=== PATIENT | male | born 1960 | race Caucasian/White ===

== ENCOUNTER 2018-05-28 23:16 | Inpatient (IN) | payer BC ==
--- NOTE | 2018-05-28 23:47 | RAD ---
TWO VIEWS CHEST: Comparison: None. History: Chest pain FINDINGS: Two views of the chest shows a normal sized cardiomediastinal silhouette. The patient is status post sternotomy. There is no evidence of consolidation, mass, or pleural effusion. IMPRESSION: No evidence of acute cardiopulmonary disease. POS: [facility]
[2018-05-29 00:05] LABS: #Basophils 0.1 thou/uL (0.0-0.2); #Eosinphils 0.2 thou/uL (0.0-0.7); #Lymphocytes 3.1 thou/uL (1.20-3.40); #Monocytes 0.8 thou/uL (0.11-0.59); #Neutrophils 4.8 thou/uL (1.40-6.50); %Eosinophils 2.1 % (0.0-10.0); %Lymphocytes 34.3 % (21.0-51.0); %Monocytes 8.6 % (0.0-10.0); %Neutrophils 54.1 % (42.0-75.0); Hemoglobin 15.4 g/dL (14.0-18.0); Mean Corpuscular HGB CONC 34.6 g/dL (32.0-36.0); Mean Corpuscular Hemoglobin 33.6 pg (27.0-31.0); Mean Corpuscular Volume 97.2 fL (78.0-98.0); Platelet Count 291 thou/uL (130-400); RBC Distribution Width 11.5 % (11.5-14.5); Red Blood Cell (RBC) Count 4.57 mill/uL (4.70-6.10); White Blood Cell (WBC) Count 8.9 thou/uL (4.8-10.8)
[2018-05-29 00:50] LABS: ALT (SGPT) 12 U/L (8-55); AST (SGOT) 11 U/L (5-34); Albumin 3.8 g/dL (3.5-5.0); Alkaline Phosphatase 113 U/L (40-150); Anion Gap 13 mmol/L (10-20); BUN (Urea Nitrogen) 22 mg/dL (8.4-25.7); Bilirubin, Total 0.3 mg/dL (0.2-1.2); CK (CPK) 77 U/L (30-200); Calc. Creatinine Clearance 0 mL/min (70-130); Calcium 9.8 mg/dL (7.8-10.44); Carbon Dioxide 21 mmol/L (22-29); Chloride 106 mmol/L (98-107); Estimated GFR-MDRD 38; Glucose 256 mg/dL (70-105); Potassium 3.7 mmol/L (3.5-5.1); Protein, Total 6.9 g/dL (6.0-8.3); Sodium 136 mmol/L (136-145)
[2018-05-29 00:51] LABS: CKMB 2.2 ng/mL (0-6.6); Troponin I 0.025 ng/mL (< 0.028)
--- NOTE | 2018-05-29 01:50 | PDOC.FPRHP ---
- History of Present Illness Chief Complaint: Chest tightness History of Present Illness: Mr. Stafford presents with CC of "chest tightness" that began after waking up from nap yesterday afternoon. Denies chest pain, reports only chest tightness that goes across front of chest. No radiation, intermittent, unaffected by rest or activity, no trigger. Reports this tightness was similar to IA he had in 2003. Initially, the intermittent episodes lasted 10-15 min, now they are shorter. Denies SOB, N/ V, heart palpitations. 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 ED Course: ASA - Allergies/Adverse Reactions Allergies Allergy/AdvReac Type Severity Reaction Status Date / Time Penicillins Allergy Verified 03/05/14 06:50 - Home Medications Medication Instructions Recorded Confirmed Type Losartan [Cozaar] 100 mg PO DAILY 03/05/14 05/29/18 History Metoprolol Tartrate [Lopressor] 100 mg PO DAILY 03/05/14 05/29/18 History Pregabalin [Lyrica] 100 mg PO BID 03/05/14 05/29/18 History Simvastatin 40 mg PO HS 03/05/14 05/29/18 History Zonisamide [Zonegran] 200 mg PO HS 03/05/14 05/29/18 History lamoTRIgine [LaMICtal] 100 mg PO TID 03/05/14 05/29/18 History Clopidogrel Bisulfate [Plavix] 75 mg PO DAILY #30 tab 03/07/14 05/29/18 Rx Amlodipine [Norvasc] 5 mg PO DAILY 05/29/18 05/29/18 History HumaLOG 6 unit SC AC 05/29/18 05/29/18 History Insulin Glargine [Lantus] 22 units SC HS 05/29/18 05/29/18 History Omeprazole Magnesium [Prilosec] 20 mg PO DAILY 05/29/18 05/29/18 History - History PMHx: 2004 IA, T2DM, HTN, 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 No alcohol or drug use. - Review of Systems General: denies: fever/chills, weight/appetite/sleep changes Eyes: reports: vision changes (recent R eye surgery for diabetic retinopathy). denies: eye pain ENT: denies: nasal congestion, rhinorrhea Respiratory: denies: cough, shortness of breath Cardiovascular: reports: other (chest tightness). denies: chest pain, palpitation, edema Gastrointestinal: denies: nausea, vomiting, diarrhea, constipation, abdominal pain Genitourinary: denies: incontinence, dysuria Skin: denies: rashes, lesions Musculoskeletal: denies: pain, tenderness Neurological: denies: numbness, weakness Psychological: denies: anxiety, depression - Vital signs BP: 179/93 HR: 60 RR: 16 Tmax: 98.1 Pox: 98% on RA Wt: 72 kg - Physical Exam Constitutional: NAD, awake, alert and oriented, well developed HEENT: normocephalic and atraumatic, grossly normal hearing, MMM, oropharynx clear, other (R pupil smaller than L (recent surg)) Chest: no-tender to palpation Heart: RRR, normal S1/S2, no murmurs/rubs/gallops Lungs: CTAB, no respiratory distress, no wheezing, other (mild course breath sounds at bases) Abdomen: soft, non-tender, bowel sounds present Musculoskeletal: normal structure, normal tone Neurological: no focal deficit Skin: good turgor, capillary refill <2 seconds Heme/Lymphatic: no unusual bruising or bleeding Psychiatric: normal mood and affect FMR H&P: Results - Labs Result Diagrams: 05/28/18 23:57 05/29/18 00:10 Lab results: WBC 8.9 thou/uL (4.8-10.8) 05/28/18 23:57 Hgb 15.4 g/dL (14.0-18.0) 05/28/18 23:57 Hct 44.4 % (42.0-52.0) 05/28/18 23:57 MCV 97.2 fL (78.0-98.0) 05/28/18 23:57 Plt Count 291 thou/uL (130-400) 05/28/18 23:57 Neutrophils % 54.1 % (42.0-75.0) 05/28/18 23:57 Sodium 136 mmol/L (136-145) 05/29/18 00:10 Potassium 3.7 mmol/L (3.5-5.1) 05/29/18 00:10 Chloride 106 mmol/L (98-107) 05/29/18 00:10 Carbon Dioxide 21 mmol/L (22-29) L 05/29/18 00:10 BUN 22 mg/dL (8.4-25.7) 05/29/18 00:10 Creatinine 1.87 mg/dL (0.6-1.3) H 05/29/18 00:10 Glucose 256 mg/dL (70-105) H 05/29/18 00:10 Calcium 9.8 mg/dL (7.8-10.44) 05/29/18 00:10 Total Bilirubin 0.3 mg/dL (0.2-1.2) 05/29/18 00:10 AST 11 U/L (5-34) 05/29/18 00:10 ALT 12 U/L (8-55) 05/29/18 00:10 Alkaline Phosphatase 113 U/L (40-150) 05/29/18 00:10 Creatine Kinase 77 U/L (30-200) 05/29/18 00:10 CK-MB (CK-2) 2.2 ng/mL (0-6.6) 05/29/18 00:10 Serum Total Protein 6.9 g/dL (6.0-8.3) 05/29/18 00:10 Albumin 3.8 g/dL (3.5-5.0) 05/29/18 00:10 FMR H&P: A/P - Problem List (1) Atypical chest pain Current Visit: Yes Status: Acute Code(s): R07.89 - OTHER CHEST PAIN (2) T2DM (type 2 diabetes mellitus) Current Visit: Yes Status: Chronic (3) CKD (chronic kidney disease) Current Visit: Yes Status: Chronic Code(s): N18.9 - CHRONIC KIDNEY DISEASE, UNSPECIFIED Qualifiers: Chronic kidney disease stage: stage 3 (moderate) Qualified Code(s): N18.3 - Chronic kidney disease, stage 3 (moderate) (4) Epilepsy Current Visit: Yes Status: Chronic Code(s): G40.909 - EPILEPSY, UNSP, NOT INTRACTABLE, WITHOUT STATUS EPILEPTICUS (5) HTN (hypertension) Current Visit: Yes Status: Chronic Code(s): I10 - ESSENTIAL (PRIMARY) HYPERTENSION (6) HLD (hyperlipidemia) Current Visit: Yes Status: Chronic Code(s): E78.5 - HYPERLIPIDEMIA, UNSPECIFIED (7) Hx of CABG Current Visit: Yes Status: Chronic (8) Tobacco abuse Current Visit: Yes Status: Chronic Code(s): Z72.0 - TOBACCO USE - Plan 57 yo M with PMH CAD, T2DM, HTN presents with chest tightness and is admitted for observation of atypical chest pain. Atypical chest pain - hx of CAD with CABG, stent placement. Last cath in 2013 with stent placement. - Heart score 5 - received ASA in ED - trop 0.025, will continue to trend - EKG unchanged from previous - will consult cardiology in am for their recommendations on workup T2DM - with microvascular damage, retinopathy s/p surgery - continue home metformin, januvia when med rec complete - A1c 7.8, 12/2017 CAD s/p CABG and stent - continue home ASA, plavix, imdur, simvastatin when med rec complete HTN - continue home losartan, amlodipine? when med rec complete - hold home metoprolol CKD3 - Cr 1.87 and GFR 38 on admission, 1.6 is baseline - will monitor on BMP Peripheral neuropathy - continue home lyrica when med rec complete Hx of epilepsy 2/2 TBI - continue home lamictal, zonegran when med rec complete Tobacco abuse - encourage cessation - nicotine patch Diet: NPO after midnight Ppx: Lovenox, no GI Dispo: admit to telemetry for observation FMR H&P: Upper Level - Pertinent history 57 y/o M w/ PMHx of CABG and stent placement w/ last cath [place] [address] Sanders presents for evaluation of substernal chest tightness located at the inferior costal margin w/o radiation, no associated shortness of breath. No exacerbation w/ exertion. No sweating, no nausea. Pt reports pain similar to IA but significantly less severe. Reports taking heart medications as prescribed. Notes pain started upon waking from a nap earlier today around 1600. Reports pain has resolved. Given ASA in ER. - Pertinent findings Trop - .025 CK-MB - 2.2 CXR - NAD EKG - incomplete RBB, sinus madeleine, anterior and inferior lead q-waves (stable from 02/19 EKG) GEN: NAD, resting in bed comfortably HEENT: Normocephalic, atraumatic CARDS: RRR, no murmurs, rubs, gallops. CP non-reproducible PULM: CTA-b/l, no wheezes, rales, or rhonci GI: Non-ttp, BSx4 - Plan Date/Time: 05/29/18 0150 Arvin Erickson MD, have evaluated this patient and agree with findings/plan as outlined by application development intern resident. Pertinent changes/additions are listed here. 57 y/o M w/: 1) Atypical Chest Pain (HEART Score = 5) - Pt w/ signficant cardiac hx now w/ chest pain an no recent cardiac work-up. Initial enzymes reassuring and no evidence of acute ST-segment changes on EKG. - Admit Tele/Obs - Will cont. w/ statin, ASA, and other cardiac medications. Hold beta yoon for possible stress in the AM. - Check TSH - Plan to consult cardiology in the AM to discuss cath vs stress - Cont to trend Trops and CK-MB's q3 hrs 2) Other Chronic Medical Problems per application development intern note Attending Addendum - Attending Addendum Date/Time: 05/29/18 1306 I personally evaluated the patient and discussed the management with Dr. Freeman. I agree with the History, Examination, Assessment and Plan documented above with any addition or exceptions noted below. The pt presented with chest pain. Cardiac enzymes are slowly elevating. With pt's CAD history, we will consult cardiology to determine whether they want to cath the pt vs. getting a stress test. Pt is currently cp free.
[2018-05-29] MEDS ORDERED: Ondansetron ODT 4 MG TAB PO PRN (03:50)
[2018-05-29] MEDS ORDERED: Nitroglycerin 0.4 MG TAB (25 Tab Bottle) PO PRN (03:50)
[2018-05-29] MEDS ORDERED: Acetaminophen 325 MG TAB PO PRN (03:50)
[2018-05-29 04:14] LABS: Troponin I 0.067 ng/mL (< 0.028)
[2018-05-29 06:33] LABS: CKMB 2.8 ng/mL (0-6.6); Troponin I 0.147 ng/mL (< 0.028)
[2018-05-29 09:33] LABS: Troponin I 0.185 ng/mL (< 0.028)
[2018-05-29 12:42] LABS: Troponin I 0.202 ng/mL (< 0.028)
[2018-05-29] MEDS: Nicotine 21 MG PATCH TD SCH (14:45)
[2018-05-29] MEDS: Heparin 5,000 UNITS/ML VIAL SC SCH ×2 (14:46→22:16)
[2018-05-29 18:42] LABS: Troponin I 0.134 ng/mL (< 0.028)
--- NOTE | 2018-05-29 19:43 | CON ---
DATE OF CONSULTATION: REASON FOR CONSULTATION: Elevated troponin and chest pain. HISTORY OF PRESENT ILLNESS: Mr. Stafford is a pleasant 57-year-old gentleman, whom I have seen him in the past. He has a history of CAD, status post bypass surgery in 2013. At that time, he presented with unstable angina. He underwent successful stent placement through the saphenous vein graft to the right coronary artery. The distribution appeared small. The thrombus was present. He has done well since that time. He has been getting treatment for macular degeneration. He states he has had significant stress from his treatment to macular degeneration. He was scheduled for surgery tomorrow. He states he had acute onset of chest pain. It was dull in nature. This was wehl-py-bebreykg, a period lasting 5 hours. It waxed and waned. No other present. PAST MEDICAL HISTORY: CAD, status post bypass surgery; previous IN; epilepsy; hypertension; hyperlipidemia; chronic kidney disease; stent placement. SOCIAL HISTORY: Continues to smoke after previous discussions about tobacco cessation. No alcohol use. REVIEW OF SYSTEMS: A 10-point review of systems reviewed and is negative. PHYSICAL EXAMINATION: GENERAL: Patient is a pleasant male who is in no acute distress. The patient appears his stated age. VITAL SIGNS: Blood pressure 166/86, pulse 56, temperature 98.3. NEUROLOGIC: The patient is alert and oriented x3 with no focal neurologic deficits. HEENT: Sclerae without icterus. Mouth has moist mucous membranes with normal pallor. NECK: No JVD. Carotid upstroke brisk. No bruits bilaterally. LUNGS: Clear to auscultation with unlabored respirations. BACK: No scoliosis or kyphosis. CARDIAC: Regular rate and rhythm with normal S1 and S2. No S3 or S4 noted. No significant rubs, murmurs, thrills, or gallops noted throughout the precordium. PMI is not displaced. There is no parasternal heave. ABDOMEN: Soft, nontender, nondistended. No peritoneal signs present. No hepatosplenomegaly. No abnormal striae. EXTREMITIES: 2+ femoral and 2+ dorsalis pedis pulses. No cyanosis, clubbing, or edema. SKIN: No gross abnormalities. LABORATORY DATA: Pertinent labs: Troponin 0.2. TSH 2.4. Creatinine 1.87. GFR 38. IMPRESSION: 1. Elevated troponin. 2. Chest pain. 3. Coronary artery disease. 4. Status post bypass surgery. 5. Tobacco abuse. RECOMMENDATIONS: From a CV standpoint, I did review Mr. Stafford's angiogram. He has diffuse disease present. It is difficult to assess where his ischemia is coming from based on his angio in 2013. He is currently chest pain-free. His troponin maybe due to demand ischemia on top of chronic kidney disease. I did discuss coronary angiography versus stress test. The stress test would help assess the area of concern. This will also help assess whether the area of concern is a small area or large area. We would recommend a noninvasive stress test to assess for any areas of ischemia. Otherwise, I have no recommendations. Job ID: [id number]
[2018-05-29] MEDS ORDERED: Amlodipine 5 MG TAB PO SCH (21:15)
[2018-05-29] MEDS: INSULIN GLARGINE SC SCH (22:16)
[2018-05-29] MEDS: lamoTRIgine 100 MG TAB PO SCH (22:16)
[2018-05-29] MEDS: PRE FILLED SC SCH (22:16)
[2018-05-29] MEDS: Losartan 25 MG TAB PO SCH (22:17)
[2018-05-29] MEDS: Pregabalin 50 MG CAP PO SCH (22:17)
[2018-05-29] MEDS: Simvastatin 40 MG TAB PO SCH (22:18)
[2018-05-29] MEDS: Zonisamide 100 MG CAP PO SCH (22:27)
[2018-05-30 07:30] LABS: Anion Gap 12 mmol/L (10-20); BUN (Urea Nitrogen) 20 mg/dL (8.4-25.7); Calc. Creatinine Clearance 59 mL/min (70-130); Calcium 9.7 mg/dL (7.8-10.44); Carbon Dioxide 23 mmol/L (22-29); Chloride 109 mmol/L (98-107); Estimated GFR-MDRD 52; Glucose 133 mg/dL (70-105); Sodium 140 mmol/L (136-145)
[2018-05-30] MEDS ORDERED: Losartan 25 MG TAB PO SCH (09:00)
[2018-05-30] MEDS ORDERED: Non-Formulary Item 1 EACH (Omeprazole Magnesium [Prilosec] 20 MG) PO SCH (09:00)
[2018-05-30] MEDS: Clopidogrel Bisulfate 75 MG TAB PO SCH ×2 (09:12→12:30)
[2018-05-30] MEDS: lamoTRIgine 100 MG TAB PO SCH ×3 (09:12→20:15)
[2018-05-30] MEDS: Amlodipine 5 MG TAB PO SCH ×2 (09:12→12:31)
[2018-05-30] MEDS: Heparin 5,000 UNITS/ML VIAL SC SCH ×2 (09:12→20:15)
[2018-05-30] MEDS: HumaLOG 300 UNITS/3 ML VIAL SC SCH ×3 (09:12→14:43)
[2018-05-30] MEDS: Nicotine 21 MG PATCH TD SCH (09:12)
[2018-05-30] MEDS: Sodium Chloride 0.9% 1,000 ML IV SCH ×3 (09:13→20:14)
[2018-05-30] MEDS: Pregabalin 50 MG CAP PO SCH ×3 (09:13→20:17)
--- NOTE | 2018-05-30 11:09 | PDOC.FM ---
- Subjective Subjective: Pt had stress this am. Remains chest pain free; however, per pt had some st changes on stress and still worker helper gave pt nitro and recommended no diet today. Will wait for official report on stress. - Objective Vital Signs & Weight: Vital Signs (12 hours) Temp Pulse Resp BP BP Pulse Ox 05/30/18 09:12 84 05/30/18 07:34 98.3 F 84 20 128/70 95 05/30/18 04:48 98.6 F 67 16 126/68 95 05/29/18 23:49 97.8 F 72 20 113/57 L 96 Weight Weight 71.985 kg I&O: 05/29/18 05/30/18 05/31/18 06:59 06:59 06:59 Intake Total 840 Balance 840 Result Diagrams: 05/28/18 23:57 05/30/18 06:30 <John Marin - Last Filed: 05/30/18 11:07> - Objective Vital Signs & Weight: Vital Signs (12 hours) Temp Pulse Resp BP Pulse Ox 05/30/18 12:31 76 05/30/18 11:45 98.2 F 76 16 111/57 L 93 L 05/30/18 07:34 98.3 F 84 20 128/70 95 05/30/18 04:48 98.6 F 67 16 126/68 95 Weight Weight 71.985 kg I&O: 05/29/18 05/30/18 05/31/18 06:59 06:59 06:59 Intake Total 840 250 Balance 840 250 Result Diagrams: 05/28/18 23:57 05/30/18 12:24 <Caty Anaya - Last Filed: 05/30/18 15:28> Phys Exam - Physical Examination Constitutional: NAD HEENT: PERRLA, moist MMs Neck: no nodes, no JVD Respiratory: no wheezing, no rales, no rhonchi, clear to auscultation bilateral Cardiovascular: RRR, no significant murmur, no rub Gastrointestinal: no distention Musculoskeletal: no edema, pulses present Neurological: non-focal, moves all 4 limbs Psychiatric: normal affect Skin: no rash, normal turgor <John Marin - Last Filed: 05/30/18 11:07> Dx/Plan (1) Atypical chest pain Code(s): R07.89 - OTHER CHEST PAIN Status: Acute (2) CKD (chronic kidney disease) Code(s): N18.9 - CHRONIC KIDNEY DISEASE, UNSPECIFIED Status: Chronic Qualifiers: Chronic kidney disease stage: stage 3 (moderate) Qualified Code(s): N18.3 - Chronic kidney disease, stage 3 (moderate) (3) HLD (hyperlipidemia) Code(s): E78.5 - HYPERLIPIDEMIA, UNSPECIFIED Status: Chronic (4) HTN (hypertension) Code(s): I10 - ESSENTIAL (PRIMARY) HYPERTENSION Status: Chronic (5) Hx of CABG Status: Chronic (6) T2DM (type 2 diabetes mellitus) Status: Chronic (7) Tobacco abuse Code(s): Z72.0 - TOBACCO USE Status: Chronic - Plan Plan: Atypical chest pain - stress results pending per cardiology recommendations - NPO until results return T2DM - cont home meds CAD s/p CABG and stent - continue home ASA, plavix, imdur, simvastatin when med rec complete HTN - cont home meds CKD3 - stable - monitor Peripheral neuropathy - home meds Hx of epilepsy 2/2 TBI - home meds Tobacco abuse - encourage cessation - nicotine patch Dispo: stable, awaiting stress results and further management dependent on that. <John Marin - Last Filed: 05/30/18 11:07> (1) Atypical chest pain Code(s): R07.89 - OTHER CHEST PAIN Status: Acute (2) T2DM (type 2 diabetes mellitus) Status: Chronic (3) CKD (chronic kidney disease) Code(s): N18.9 - CHRONIC KIDNEY DISEASE, UNSPECIFIED Status: Chronic Qualifiers: Chronic kidney disease stage: stage 3 (moderate) Qualified Code(s): N18.3 - Chronic kidney disease, stage 3 (moderate) (4) Epilepsy Code(s): G40.909 - EPILEPSY, UNSP, NOT INTRACTABLE, WITHOUT STATUS EPILEPTICUS Status: Chronic (5) HTN (hypertension) Code(s): I10 - ESSENTIAL (PRIMARY) HYPERTENSION Status: Chronic (6) HLD (hyperlipidemia) Code(s): E78.5 - HYPERLIPIDEMIA, UNSPECIFIED Status: Chronic (7) Hx of CABG Status: Chronic (8) Tobacco abuse Code(s): Z72.0 - TOBACCO USE Status: Chronic <Caty Anaya - Last Filed: 05/30/18 15:28> Attending Addendum - Attending Addendum Date/Time: 05/30/18 1528 I personally evaluated the patient and discussed the management with Dr. Marin. I agree with the History, Examination, Assessment and Plan documented above with any addition or exceptions noted below. Pt was seen after stress test this morning. He states his ekg was abnormal during the stress and he was given a nitro tab. Waiting on official read and recs by Dr. Sanders. <Caty Anaya - Last Filed: 05/30/18 15:28>
--- NOTE | 2018-05-30 11:49 | NM ---
MYOCARDIAL PERFUSION AND QUANTITATIVE GATED SPECT STUDY: Date: 05-30-18 History: Chest pain FINDINGS: Dose is 31 mCi Technetium 99M Cardiolite for the stress portion of the exam and 10.8 mCi for the rest ing portion of the exam. The patient was stressed using Car protocol. Images demonstrate areas of decreased profusion on stress images in the inferior myocardium. There is some inferior and lateral myocardial areas of decreased perfusion which demonstrates re-perfusion on the resting images. Findings suggest inferior and lateral myocardial ischemia. Ejection fraction: 71% IMPRESSION: Inferior and lateral myocardial ischemia. POS: [facility]
[2018-05-30 13:01] LABS: Anion Gap 11 mmol/L (10-20); BUN (Urea Nitrogen) 20 mg/dL (8.4-25.7); Calc. Creatinine Clearance 57 mL/min (70-130); Calcium 9.7 mg/dL (7.8-10.44); Carbon Dioxide 24 mmol/L (22-29); Chloride 107 mmol/L (98-107); Estimated GFR-MDRD 49; Glucose 196 mg/dL (70-105); Sodium 138 mmol/L (136-145)
[2018-05-30] MEDS ORDERED: Communication Order-Pharmacy FS SCH (18:45)
[2018-05-30] MEDS ORDERED: Diazepam 5 MG TAB PO SCH (18:45)
[2018-05-30] MEDS: PRE FILLED SC SCH (20:15)
[2018-05-30] MEDS: Losartan 25 MG TAB PO SCH (20:15)
[2018-05-30] MEDS: INSULIN GLARGINE SC SCH (20:15)
[2018-05-30] MEDS: Simvastatin 40 MG TAB PO SCH (20:17)
[2018-05-30] MEDS: Zonisamide 100 MG CAP PO SCH (20:18)
[2018-05-31 04:09] LABS: #Basophils 0.1 thou/uL (0.0-0.2); #Eosinphils 0.1 thou/uL (0.0-0.7); #Lymphocytes 2.4 thou/uL (1.20-3.40); #Monocytes 0.8 thou/uL (0.11-0.59); #Neutrophils 5.6 thou/uL (1.40-6.50); %Basophils 0.7 % (0.0-1.0); %Eosinophils 1.3 % (0.0-10.0); %Lymphocytes 26.8 % (21.0-51.0); %Monocytes 9.1 % (0.0-10.0); Hemoglobin 14.4 g/dL (14.0-18.0); Mean Corpuscular HGB CONC 34.2 g/dL (32.0-36.0); Mean Corpuscular Hemoglobin 33.6 pg (27.0-31.0); Mean Corpuscular Volume 98.2 fL (78.0-98.0); Mean Platelet Volume 8.2 fL (7.4-10.4); Platelet Count 254 thou/uL (130-400); RBC Distribution Width 11.4 % (11.5-14.5); Red Blood Cell (RBC) Count 4.27 mill/uL (4.70-6.10)
[2018-05-31 04:30] LABS: ALT (SGPT) 12 U/L (8-55); AST (SGOT) 12 U/L (5-34); Albumin 3.6 g/dL (3.5-5.0); Alkaline Phosphatase 115 U/L (40-150); Anion Gap 12 mmol/L (10-20); BUN (Urea Nitrogen) 18 mg/dL (8.4-25.7); Bilirubin, Total 0.3 mg/dL (0.2-1.2); Calc. Creatinine Clearance 54 mL/min (70-130); Carbon Dioxide 20 mmol/L (22-29); Chloride 114 mmol/L (98-107); Estimated GFR-MDRD 47; Globulin 2.9 g/dL (2.4-3.5); Glucose 129 mg/dL (70-105); Potassium 3.9 mmol/L (3.5-5.1); Protein, Total 6.5 g/dL (6.0-8.3); Sodium 142 mmol/L (136-145)
[2018-05-31] MEDS: Sodium Chloride 0.9% 1,000 ML IV SCH ×5 (05:25→20:26)
[2018-05-31] MEDS ORDERED: Midazolam HCl 2 mg/2 ml Vial ONE (06:55)
[2018-05-31] MEDS ORDERED: Fentanyl 100 MCG/2 ML VIAL ONE (06:55)
[2018-05-31] MEDS ORDERED: Lidocaine 1% (PF) 30 ML VIAL ONE ×2 (06:55)
[2018-05-31] MEDS ORDERED: Nitroglycerin 100MG/250ML BOT 250 ML ONE ×2 (07:38→07:39)
--- NOTE | 2018-05-31 08:21 | PRG ---
DATE OF SERVICE: 05/30/2018 SUBJECTIVE: Mr. Stafford had a recent stress study that it was positive for ischemia along inferior and lateral wall. He does not have any recurrent episodes of chest pain. He did exercise for 10 minutes without chest pain. He did have Q-waves noted inferiorly with ST-segment elevation. This likely represented a previous NV. OBJECTIVE: GENERAL: The patient is a pleasant 57-year-old male, who is in no acute distress. The patient appears their stated age. VITAL SIGNS: Blood pressure 156/85, pulse 69, temperature 97.7. NEUROLOGIC: The patient is alert and oriented x3 with no focal neurologic deficits. HEENT: Sclerae without icterus. Mouth has moist mucous membranes with normal pallor. NECK: No JVD. Carotid upstroke brisk. No bruits bilaterally. LUNGS: Clear to auscultation with unlabored respirations. BACK: No scoliosis or kyphosis. CARDIAC: Regular rate and rhythm with normal S1 and S2. No S3 or S4 noted. No significant rubs, murmurs, thrills, or gallops noted throughout the precordium. PMI is not displaced. There is no parasternal heave. ABDOMEN: Soft, nontender, nondistended. No peritoneal signs present. No hepatosplenomegaly. No abnormal striae. EXTREMITIES: 2+ femoral and 2+ dorsalis pedis pulses. No cyanosis, clubbing, or edema. SKIN: No gross abnormalities. IMPRESSION: 1. Abnormal stress study. 2. Elevated troponin. 3. Chest pain. RECOMMENDATIONS: Certainly difficult situation to Mr. Stafford. He did have excellent exercise tolerance on recent treadmill at 10 minutes with no chest pain. He did have an ST-segment elevation. He also had ischemia in 2-vessel distribution. After reviewing his angio, he may have ischemia to the intermediate ramus branch in addition to the right coronary artery. He may also have complete occlusion of the graft to the right coronary artery that has been stented in the past. He has not had any stress study performed in the last 4 years after a stent placement. I discussed medical therapy versus coronary angiography, stressing coronary angiography. He is having laser therapy for diabetic retinopathy by Dr. Alcaraz in the coming weeks. I did discuss with Dr. Alcaraz as well. Dr. Alcaraz feels that I can proceed with drug-coated stent placement if needed. Therefore, we will proceed. I discussed coronary angiography in full details, risks included, but not limited to . I discussed the procedure in full detail with the patient. The risks of the procedure were also discussed. The risks of the procedure include but are not limited to the following: , stroke, NV, need for emergency surgery, loss of limb, bleeding, and infection, as well as a reaction to the dye causing kidney failure and needing long-term dialysis. I also discussed the risks of PCI to include all of the above including coronary dissection and perforation in addition to acute stent thrombosis and restenosis. All questions about the procedure were answered. Given the above, the patient agreed to proceed with coronary angiography and possible PCI. All questions were answered. I had also discussed drug-coated we will proceed if needed. His creatinine is 1.48. We will hydrate him starting today. We will hydrate for 12 to 18 hours. Job ID: [id number]
[2018-05-31] MEDS: HumaLOG 300 UNITS/3 ML VIAL SC SCH ×3 (09:22→17:36)
[2018-05-31] MEDS: lamoTRIgine 100 MG TAB PO SCH ×3 (09:25→20:17)
[2018-05-31] MEDS: Amlodipine 5 MG TAB PO SCH (09:25)
[2018-05-31] MEDS: Pregabalin 50 MG CAP PO SCH ×2 (09:26→20:19)
[2018-05-31] MEDS: Nicotine 21 MG PATCH TD SCH (09:29)
--- NOTE | 2018-05-31 09:30 | PDOC.FM ---
- Subjective Subjective: 57 yo M w/ sever [facility] day 3. Pt had cardiac cath this am and per pt and pts family showed significant occlusion of previous grafts and stents that are likley not ammenable to stenting. Per family cardiology will consult CV surgery for further recommendations. He denies cp, sob, NVDC, diaphoresis. - Objective Vital Signs & Weight: Vital Signs (12 hours) Temp Pulse Resp BP BP Pulse Ox 05/31/18 08:22 98.2 F 71 20 151/71 H 98 05/31/18 05:20 97.7 F 69 14 156/83 H 95 05/30/18 23:31 97.8 F 67 12 158/77 H 95 Weight Weight 73.119 kg I&O: 05/30/18 05/31/18 06/01/18 06:59 06:59 06:59 Intake Total 840 4100 Balance 840 4100 Result Diagrams: 05/31/18 03:46 05/31/18 03:46 <John Marin - Last Filed: 05/31/18 09:28> - Objective Vital Signs & Weight: Vital Signs (12 hours) Temp Pulse Resp BP BP BP Pulse Ox 05/31/18 09:25 71 162/87 H 05/31/18 08:22 98.2 F 71 20 151/71 H 98 05/31/18 05:20 97.7 F 69 14 156/83 H 95 05/30/18 23:31 97.8 F 67 12 158/77 H 95 Weight Weight 73.119 kg I&O: 05/30/18 05/31/18 06/01/18 06:59 06:59 06:59 Intake Total 840 4100 Output Total 300 Balance 840 4100 -300 Result Diagrams: 05/31/18 03:46 05/31/18 03:46 <Caty Anaya - Last Filed: 05/31/18 10:57> Phys Exam - Physical Examination Constitutional: NAD HEENT: PERRLA, moist MMs, sclera anicteric Neck: no nodes, no JVD Respiratory: no wheezing, no rales, no rhonchi, clear to auscultation bilateral Cardiovascular: RRR, no significant murmur, no rub Gastrointestinal: soft, non-tender, no distention, positive bowel sounds Musculoskeletal: no edema, pulses present Neurological: non-focal, moves all 4 limbs Psychiatric: normal affect Skin: no rash, cap refill <2 seconds <John Marin - Last Filed: 05/31/18 09:28> Dx/Plan (1) Atypical chest pain Code(s): R07.89 - OTHER CHEST PAIN Status: Acute (2) CKD (chronic kidney disease) Code(s): N18.9 - CHRONIC KIDNEY DISEASE, UNSPECIFIED Status: Chronic Qualifiers: Chronic kidney disease stage: stage 3 (moderate) Qualified Code(s): N18.3 - Chronic kidney disease, stage 3 (moderate) (3) HLD (hyperlipidemia) Code(s): E78.5 - HYPERLIPIDEMIA, UNSPECIFIED Status: Chronic (4) HTN (hypertension) Code(s): I10 - ESSENTIAL (PRIMARY) HYPERTENSION Status: Chronic (5) Hx of CABG Status: Chronic (6) T2DM (type 2 diabetes mellitus) Status: Chronic (7) Tobacco abuse Code(s): Z72.0 - TOBACCO USE Status: Chronic - Plan Plan: Atypical chest pain - await cardiology recs - likely CV surg consult and possible repeat CABG T2DM - cont home meds CAD s/p CABG and stent - continue home ASA, plavix, imdur, simvastatin when med rec complete HTN - cont home meds CKD3 - stable - monitor - IVF hydration 12-18 hrs post procedure per cards recs Peripheral neuropathy - home meds Hx of epilepsy 2/2 TBI - home meds Tobacco abuse - encourage cessation - nicotine patch Dispo: stable, awaiting cardiology recs and cardiac cath official results. <John Marin - Last Filed: 05/31/18 09:28> (1) Atypical chest pain Code(s): R07.89 - OTHER CHEST PAIN Status: Acute (2) T2DM (type 2 diabetes mellitus) Status: Chronic (3) CKD (chronic kidney disease) Code(s): N18.9 - CHRONIC KIDNEY DISEASE, UNSPECIFIED Status: Chronic Qualifiers: Chronic kidney disease stage: stage 3 (moderate) Qualified Code(s): N18.3 - Chronic kidney disease, stage 3 (moderate) (4) Epilepsy Code(s): G40.909 - EPILEPSY, UNSP, NOT INTRACTABLE, WITHOUT STATUS EPILEPTICUS Status: Chronic (5) HTN (hypertension) Code(s): I10 - ESSENTIAL (PRIMARY) HYPERTENSION Status: Chronic (6) HLD (hyperlipidemia) Code(s): E78.5 - HYPERLIPIDEMIA, UNSPECIFIED Status: Chronic (7) Hx of CABG Status: Chronic (8) Tobacco abuse Code(s): Z72.0 - TOBACCO USE Status: Chronic <Caty Anaya - Last Filed: 05/31/18 10:57> Attending Addendum - Attending Addendum Date/Time: 05/31/18 1056 I personally evaluated the patient and discussed the management with Dr. Marin. I agree with the History, Examination, Assessment and Plan documented above with any addition or exceptions noted below. The patient had a cath this morning showing multi-vessel disease. CV surgery is being consulted to see if he is a candidate for cabg. <Caty Anaya - Last Filed: 05/31/18 10:57>
[2018-05-31] MEDS ORDERED: traMADol HCl 50 MG TAB PO PRN (09:33)
[2018-05-31] MEDS ORDERED: Nitroglycerin 0.4 MG TAB (25 Tab Bottle) SL PRN (09:33)
[2018-05-31] MEDS ORDERED: Acetaminophen/Codeine 30-300mg Tablet PO PRN ×2 (09:33)
[2018-05-31] MEDS ORDERED: Sodium Chloride 0.9% 200 ML IV SCH (09:45)
[2018-05-31] MEDS ORDERED: Iopamidol 370 76% 100 ML VIAL ONE (10:54)
[2018-05-31] MEDS: Heparin 5,000 UNITS/ML VIAL SC SCH (13:55)
[2018-05-31] MEDS: Clopidogrel Bisulfate 75 MG TAB PO SCH (13:59)
[2018-05-31 14:37] VITALS: BMI 26.4
[2018-05-31 18:45] LABS: Hemoglobin 14.4 g/dL (14.0-18.0); Platelet Count 252 thou/uL (130-400)
[2018-05-31] MEDS: Heparin 10,000 UNITS/ 10 ML VIAL SLOW IVP SCH (20:05)
[2018-05-31] MEDS: Heparin 25,000 units/D5W 500 ML IVPB SCH (20:06)
[2018-05-31] MEDS: Aggrastat 12.5 MG/250 ML 250 ML IVPB SCH (20:10)
[2018-05-31] MEDS: Simvastatin 40 MG TAB PO SCH (20:17)
[2018-05-31] MEDS: Losartan 25 MG TAB PO SCH (20:18)
[2018-05-31] MEDS: Zonisamide 100 MG CAP PO SCH (20:30)
[2018-05-31] MEDS: INSULIN GLARGINE SC SCH (20:38)
[2018-05-31] MEDS: PRE FILLED SC SCH (20:38)
[2018-06-01 03:07] LABS: Anion Gap 9 mmol/L (10-20); BUN (Urea Nitrogen) 14 mg/dL (8.4-25.7); Calc. Creatinine Clearance 66 mL/min (70-130); Calcium 8.8 mg/dL (7.8-10.44); Carbon Dioxide 23 mmol/L (22-29); Chloride 115 mmol/L (98-107); Estimated GFR-MDRD 57; Glucose 79 mg/dL (70-105); Potassium 3.8 mmol/L (3.5-5.1); Sodium 143 mmol/L (136-145)
[2018-06-01 04:36] LABS: Hemoglobin 12.9 g/dL (14.0-18.0); Platelet Count 244 thou/uL (130-400)
[2018-06-01] MEDS: lamoTRIgine 100 MG TAB PO SCH ×3 (09:30→20:39)
[2018-06-01] MEDS: Clopidogrel Bisulfate 75 MG TAB PO SCH (09:31)
[2018-06-01] MEDS: Pregabalin 50 MG CAP PO SCH ×2 (09:31→20:38)
[2018-06-01] MEDS: Amlodipine 5 MG TAB PO SCH (09:32)
[2018-06-01] MEDS: Nicotine 21 MG PATCH TD SCH (09:35)
[2018-06-01] MEDS: HumaLOG 300 UNITS/3 ML VIAL SC SCH ×4 (09:35→22:17)
[2018-06-01 09:48] LABS: Hemoglobin 13.9 g/dL (14.0-18.0); Platelet Count 269 thou/uL (130-400)
[2018-06-01] MEDS ORDERED: Lorazepam 1 MG TAB PO PRN (10:03)
[2018-06-01] MEDS ORDERED: Lorazepam 2 MG/ML VIAL SLOW IVP SCH (10:15)
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
[2018-06-01] MEDS ORDERED: Nitroglycerin 4.9 GM Bottle ONE (11:11)
[2018-06-01] MEDS: Heparin 10,000 UNITS/ 10 ML VIAL SLOW IVP SCH (11:12)
--- NOTE | 2018-06-01 12:09 | PQF ---
CLINICAL DOCUMENTATION IMPROVEMENT CLARIFICATION FORM: ICD-10 Updated PLEASE DO AN ADDENDUM TO THE PROGRESS NOTE WITH ANY DOCUMENTATION UPDATES OR ADDITIONS AND CARRY THROUGH TO DC SUMMARY. THANK YOU. DATE: 06/01 ATTN: DR. JOSHUA JORGE / DR. Khoa PANG Please exercise your independent, professional judgment in responding to the clarification form. Clinical indicators are provided on the bottom of this form for your review Please check appropriate box(s): ELEVATED TROPONIN I D/T: [ x ] Demand Ischemia [ ] Not D/T Demand Ischemia [ ] Other diagnosis [ ] Unable to determine For continuity of documentation, please document condition throughout progress notes and discharge summary. Thank You. CLINICAL INDICATORS - SIGNS / SYMPTOMS/ LABS are present in the medical record: TROP I: 0.025, 0.067, 0.067, 0.147, 0.185, 0.202, 0.134 (05/29) H&P DOCUMENTATION 05/29: CARDIAC ENZYMES ARE SLOWING ELEVATING PN 05/30 - 5: 1) ATYPICAL CHEST PAIN PN 06/01: 1) ATYPICAL CHEST PAIN. SIGNIFICANT STENOSIS & OCCLUSION OF PREVIOUS GRAFTS & STENT CARDIOLOGY CONSULT 05/29: 1) ELEVATED TROPONIN. HIS TROPONIN MAY BE ELEVATED D /T DEMAND ISCHEMIA ON TOP OF CKD RISK FACTORS: CHEST PAIN CAD S/P CABG W/STENT DM II CKD 3 TOBACCO ABUSE TREATMENT: CARDIOLOGY CONSULT CARDIAC CATH (05/31) THANK YOU! Joana (This form is maintained as a part of the permanent medical record) 2014 [employer]. All Rights Reserved Joana Verde RN, BSN [email or web address] Office: [phone] [facility] HOSPITALNikki
--- NOTE | 2018-06-01 13:55 | PRG ---
DATE OF SERVICE: 06/01/2018 SUBJECTIVE: Mr. Stafford is doing well. He had nosebleed that has resolved. He was placed on heparin and IIb/IIIa inhibitor yesterday. OBJECTIVE: VITAL SIGNS: Blood pressure 113/62, pulse 67, and temperature 97.9. LUNGS: Clear to auscultation. HEART: Regular rate and rhythm. ABDOMEN: Soft, nontender, and nondistended. EXTREMITIES: No edema. IMPRESSION: 1. Unstable angina. 2. Severe coronary artery disease. 3. Status post bypass surgery. 4. Tobacco abuse. 5. Diabetes mellitus. 6. Chronic kidney disease. RECOMMENDATIONS: After having discussed transfer to [place] versus intervention at [place], the patient opted for transfer to [place]. Dr. Borrego is the pending accepting provider. The patient is felt to be high risk for complications. We will continue heparin and IIb/IIIa inhibitor. All questions were answered. Transfer Center has been notified. Job ID: [id number]
[2018-06-01 16:05] LABS: Platelet Count 270 thou/uL (130-400)
[2018-06-01 20:26] VITALS: BP 144/77; TEMP 98.8
[2018-06-01] MEDS: Simvastatin 40 MG TAB PO SCH (20:39)
[2018-06-01] MEDS: Losartan 25 MG TAB PO SCH (20:39)
[2018-06-01 21:11] LABS: Hemoglobin 14.4 g/dL (14.0-18.0); Platelet Count 266 thou/uL (130-400)
[2018-06-01] MEDS: INSULIN GLARGINE SC SCH (22:09)
[2018-06-01] MEDS: Zonisamide 100 MG CAP PO SCH (22:09)
[2018-06-01] MEDS: PRE FILLED SC SCH (22:09)
[2018-06-01] MEDS: Aggrastat 12.5 MG/250 ML 250 ML IVPB SCH (23:09)
[2018-06-01] MEDS: Heparin 25,000 units/D5W 500 ML IVPB SCH (23:12)
--- NOTE | 2018-06-03 13:02 | EKG ---
Test Reason : Blood Pressure : / mmHG Vent. Rate : 059 BPM Atrial Rate : 059 BPM P-R Int : 180 ms QRS Dur : 094 ms QT Int : 436 ms P-R-T Axes : 038 -21 032 degrees QTc Int : 431 ms Sinus bradycardia Incomplete right bundle branch block Inferior infarct , age undetermined Anterior infarct , age undetermined Abnormal ECG Confirmed by COLTON MCGRATH ([id number]), publishing editor NOÉ TORRES ([id number]) on 06/03/2018 1:02:14 PM Referred By: Confirmed By:COLTON MCGRATH
== END 2018-06-01 23:30 | disposition short-term general hospital (02) | DRG 287 ==
LOC: ERS 23:16 → ERHOLD 05-29 01:20 → 2SW 05-29 15:22 → OBSVTOIN 05-31 11:31 → 2NO 05-31 14:17
PROVIDERS: ADMIT Family Medicine; ATTEND Family Medicine
PROC: 4A023N7 Measurement of Cardiac Sampling and Pressure, Left Heart, Percutaneous Approach (ICD-10-PCS; principal; 2018-05-31)
PROC: B2111ZZ Fluoroscopy of Multiple Coronary Arteries using Low Osmolar Contrast (ICD-10-PCS; 2018-05-31)
PROC: B2131ZZ Fluoroscopy of Multiple Coronary Artery Bypass Grafts using Low Osmolar Contrast (ICD-10-PCS; 2018-05-31)
PROC: B2181ZZ Fluoroscopy of Left Internal Mammary Bypass Graft using Low Osmolar Contrast (ICD-10-PCS; 2018-05-31)
DX: I25.718 Atherosclerosis of autologous vein coronary artery bypass graft(s) with other forms of angina pectoris (principal); I24.8 Other forms of acute ischemic heart disease; N17.9 Acute kidney failure, unspecified; Z95.1 Presence of aortocoronary bypass graft; F17.210 Nicotine dependence, cigarettes, uncomplicated; E11.22 Type 2 diabetes mellitus with diabetic chronic kidney disease; I12.9 Hypertensive chronic kidney disease with stage 1 through stage 4 chronic kidney disease, or unspecified chronic kidney disease; I25.2 Old myocardial infarction; E11.319 Type 2 diabetes mellitus with unspecified diabetic retinopathy without macular edema; E78.5 Hyperlipidemia, unspecified; Z95.5 Presence of coronary angioplasty implant and graft; N18.3 Chronic kidney disease, stage 3 (moderate); F41.9 Anxiety disorder, unspecified; E11.42 Type 2 diabetes mellitus with diabetic polyneuropathy; G40.909 Epilepsy, unspecified, not intractable, without status epilepticus; Z88.0 Allergy status to penicillin; F32.9 Major depressive disorder, single episode, unspecified; I45.10 Unspecified right bundle-branch block
CPT/HCPCS: 36415; 36416; 71046; 76942; 78452; 80048; 80053; 82550; 82553; 84443; 84484; 85014; 85018; 85025; 85049; 85730; 93005; 93017; 93455; 94760; 99152; 99406; A9500; C1769; J1644; J2001; J2060; J2250; J3010; J3246

== ENCOUNTER 2020-07-08 14:21 | Outpatient (CLI) | payer BC ==
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
== END 2020-07-08 14:22 | disposition home or self-care (01) ==
LOC: BICRAD 14:21
PROVIDERS: ATTEND Family Medicine
DX: M79.605 Pain in left leg (principal)

== ENCOUNTER 2022-04-26 16:07 | Outpatient (CLI) | payer BC | END 2022-04-26 16:08 | disposition home or self-care (01) | LOC: BICRAD 16:07 | PROVIDERS: ATTEND Family Medicine | DX: R07.81 Pleurodynia (principal); J90 Pleural effusion, not elsewhere classified; J98.11 Atelectasis | CPT/HCPCS: 71046 ==

== ENCOUNTER 2025-05-15 20:49 | Inpatient (IN) | payer BC ==
[2025-05-15 21:22] LABS: #Basophils 0.05 10x3/uL (0.0-0.2); #Eosinophils 0.24 10x3/uL (0.0-0.7); #Monocytes 0.70 10x3/uL (0.11-0.59); #Neutrophils 5.38 10x3/uL (1.40-6.50); %Basophils 0.5 % (0.0-1.0); %Eosinophils 2.6 % (0.0-10.0); %Lymphocytes 30.8 % (21.0-51.0); %Monocytes 7.6 % (0.0-10.0); %Neutrophils 58.1 % (42.0-75.0); Hematocrit 43.7 % (42.0-52.0); Hemoglobin 14.7 g/dL (14.0-18.0); Mean Corpuscular Hemoglobin 32.3 pg (27.0-31.0); Mean Corpuscular Volume 96.0 fL (78.0-98.0); Platelet Count 256 10x3/uL (130-400); Red Blood Cell (RBC) Count 4.55 mill/uL (4.70-6.10); White Blood Cell (WBC) Count 9.26 10x3/uL (4.8-10.8)
[2025-05-15 21:47] LABS: ALT (SGPT) 16 U/L (Less than 45); AST (SGOT) 22 U/L (11-34); Albumin 3.9 g/dL (3.1-4.5); Alkaline Phosphatase 135 U/L (40-110); Anion Gap 15 mmol/L (10-20); BUN (Urea Nitrogen) 21 mg/dL (8.4-25.7); Bilirubin, Total 0.3 mg/dL (0.3-1.2); Calc. Creatinine Clearance 0 mL/min (70-130); Calcium 9.1 mg/dL (7.8-10.44); Carbon Dioxide 21 mmol/L (23-31); Chloride 109 mmol/L (98-107); Globulin 3.0 g/dL (2.4-3.5); Glucose 94 mg/dL (80-115); Lipase 38 U/L (8-78); Potassium 3.4 mmol/L (3.5-5.1); Sodium 142 mmol/L (136-145)
[2025-05-15] MEDS ORDERED: Droperidol 5 MG/2 ML VIAL ONE (22:35)
[2025-05-15] MEDS ORDERED: Dextrose 50% Abboject 50 ML SYRINGE ONE (22:35)
[2025-05-15] MEDS ORDERED: Calcium Carbonate 500 MG ChewTAB PO PRN (23:39)
[2025-05-15] MEDS ORDERED: Guaifenesin DM 100-10/5 ML UDCUP PO PRN (23:39)
[2025-05-15] MEDS ORDERED: Glucagon 1 MG/ML KIT IM PRN (23:39)
[2025-05-15] MEDS ORDERED: Senokot S 8.6-50 MG TAB PO PRN (23:39)
[2025-05-15] MEDS ORDERED: Dextrose 50% Abboject 50 ML SYRINGE SLOW IVP PRN (23:39)
[2025-05-15] MEDS ORDERED: Acetaminophen 325 MG TAB PO PRN (23:45)
[2025-05-15] MEDS ORDERED: Ondansetron PF 4 MG/2 ML Vial IVP PRN (23:45)
[2025-05-16 02:37] VITALS: BMI 26.7
[2025-05-16] MEDS: Pantoprazole 40 MG VIAL IVP SCH (02:56)
[2025-05-16 03:27] LABS: Anion Gap 16 mmol/L (10-20); BUN (Urea Nitrogen) 22 mg/dL (8.4-25.7); Calc. Creatinine Clearance 49 mL/min (70-130); Calcium 8.9 mg/dL (7.8-10.44); Carbon Dioxide 19 mmol/L (23-31); Chloride 111 mmol/L (98-107); Glucose 81 mg/dL (80-115); Magnesium 2.5 mg/dL (1.6-2.6); Potassium 4.2 mmol/L (3.5-5.1); Sodium 142 mmol/L (136-145)
[2025-05-16] MEDS: Pregabalin 50 MG CAP PO SCH (09:56)
[2025-05-16] MEDS: lamoTRIgine 100 MG TAB PO SCH (09:56)
[2025-05-16] MEDS: Aspirin 81 mg Enteric Coated Tablet PO SCH (09:56)
[2025-05-16] MEDS: Enoxaparin 40 MG (0.4 mL) SYRINGE SC SCH (09:58)
[2025-05-16] MEDS: Pantoprazole 40 MG DR.TAB PO SCH (09:58)
[2025-05-16] MEDS: Zonisamide 100 MG CAP PO SCH (20:59)
[2025-05-17 04:20] LABS: Anion Gap 10 mmol/L (10-20); BUN (Urea Nitrogen) 18 mg/dL (8.4-25.7); Calc. Creatinine Clearance 51 mL/min (70-130); Calcium 8.7 mg/dL (7.8-10.44); Carbon Dioxide 24 mmol/L (23-31); Cardiac Risk 3.3 (Less than 4.5); Chloride 110 mmol/L (98-107); Cholesterol 120 mg/dl (< 200 Desired); Glucose 84 mg/dL (80-115); HDL Cholesterol 36 mg/dL (>60 Neg Risk); LDL Cholesterol, Calculated 62 mg/dL; Potassium 3.6 mmol/L (3.5-5.1); Sodium 140 mmol/L (136-145); Triglycerides 110 mg/dL (Less than 150)
[2025-05-17] MEDS: Losartan 25 MG TAB PO SCH (09:26)
[2025-05-17] MEDS: Pantoprazole 40 MG DR.TAB PO SCH (09:27)
[2025-05-17 15:43] VITALS: BP 169/72; TEMP 97.8
== END 2025-05-17 17:15 | disposition home or self-care (01) | DRG 312 ==
LOC: ERS 20:49 → 2SE 23:28 → OBSVTOIN 05-16 13:38
PROVIDERS: ADMIT Student in an Organized Health Care Education/Training Program; ATTEND Student in an Organized Health Care Education/Training Program
PROC: XX20X89 Monitoring of Brain Electrical Activity, Computer-aided Detection and Notification, New Technology Group 9 (ICD-10-PCS; principal; 2025-05-16)
DX: R55 Syncope and collapse (principal); N17.9 Acute kidney failure, unspecified; E78.5 Hyperlipidemia, unspecified; R56.9 Unspecified convulsions; E11.40 Type 2 diabetes mellitus with diabetic neuropathy, unspecified; I25.10 Atherosclerotic heart disease of native coronary artery without angina pectoris; E87.6 Hypokalemia; E11.22 Type 2 diabetes mellitus with diabetic chronic kidney disease; I12.9 Hypertensive chronic kidney disease with stage 1 through stage 4 chronic kidney disease, or unspecified chronic kidney disease; N18.30 Chronic kidney disease, stage 3 unspecified; F12.90 Cannabis use, unspecified, uncomplicated; Z95.1 Presence of aortocoronary bypass graft; Z79.4 Long term (current) use of insulin; Z88.0 Allergy status to penicillin; Z98.890 Other specified postprocedural states; Z95.5 Presence of coronary angioplasty implant and graft; Z79.899 Other long term (current) drug therapy
CPT/HCPCS: 36415; 36416; 70450; 71045; 80048; 80053; 80061; 80175; 83036; 83605; 83690; 83735; 83880; 84443; 84484; 85025; 93005; 93010; 93306; 95812; 95813; 95816; J1650; J1790; J2470; J7120; J7999